=== PATIENT | male | born 1995 | race African-American/Black ===

== ENCOUNTER 2024-10-28 18:55 | Emergency (ER) | payer MEDICAID ==
[~2024-10-28] VITALS: Ht 182.9 cm; Wt 72.6 kg
[2024-10-28 19:07] VITALS: PULSE 98; RESP 18; O2SAT 100
--- NOTE | 2024-10-28 19:19 | ED.PDOC ---
History of Present Illness HPI Comments 29 y/o M, with a Hx of pancreatitis and EtOH abuse, presents with c/o non- radiating, left-sided abdominal pain, nausea, and vomiting for the past 2x days, today. Patient comments on pain being constant and pressure-like in quality. He admits to recent EtOH intake, last night, and having similar pain 3-4x months ago, when he had pancreatitis flare up and was seen and treated at [facility], today. Patient denies having any hematemesis, diarrhea, urinary symptoms, fever, chills, or other associated symptoms or modifiers at this time. Chief Complaint: Abdominal Pain Time Seen by MD: 19:00 Reviewed Notes: Nurses Notes, Medications, Allergies Allergies: Coded Allergies: NO KNOWN ALLERGIES (Unverified , 10/28/24) Mode of Arrival: Ambulatory Severity: Moderate Timing: Days (x2) Duration: Since onset Prehospital treatment: None Past Medical History Past Medical History (Other): pancreatitis Surgical History: Denies all surgeries Family History Family History: Unknown Social History Smoker: Non-Smoker Alcohol: Heavy Drugs: Denies Drug Use Lives In: Home Gastrointestinal: reports: abdominal pain (left-sided), nausea, vomiting All Other Systems: Reviewed and Negative (negative unless otherwise stated ab ove or in HPI) Physical Exam General Appearance: No Apparent Distress, Normal HEENT: Normal ENT Inspection, Pharynx Normal, TMs Normal Neck: Full Range of Motion, Non-Tender, Normal, Normal Inspection Respiratory: Chest Non-Tender, Lungs Clear, No Accessory Muscle Use, No Respiratory Distress, Normal Breath Sounds Cardiovascular: No Edema, No JVD, No Murmur, No Gallop, Normal Peripheral Pulses, Regular Rate/Rhythm Breast Exam: Deferred Gastrointestinal: LLQ (tenderness), LUQ (tenderness), No Organomegaly, No Pulsatile Mass, Normal Bowel Sounds, Soft, Tenderness Genitalia: Deferred Pelvic: Deferred Rectal: Deferred Extremities: No calf tenderness, Normal capillary refill, Normal inspection, Normal range of motion, Non-tender, No pedal edema Musculoskeletal : Apperance: Normal Neurologic: Alert, auto suspension and steering mechanic II-XII nml as Tested, No Motor Deficits, Normal Affect, Normal Mood, No Sensory Deficits Cerebellar Function: Normal Reflexes: Normal Skin: Dry, Normal Color, Warm Lymphatic: No Adenopathy Was a procedure done? Was a procedure done?: No Differential Dx Considerations may include: pancreatitis X-Ray, Labs, Meds, VS Vital Signs Date Time Temp Pulse Resp B/P (MAP) Pulse Ox O2 Delivery O2 Flow Rate FiO2 10/28/24 21:09 89 16 135/92 (106) 98 10/28/24 20:21 89 16 135/92 10/28/24 19:51 90 18 153/106 10/28/24 19:07 98 18 100 Room Air* 0 21 10/28/24 19:04 98.0 98 18 119/69 (86) 100 Lab Test 10/28/24 19:28 Range/Units White Blood Count 5.9 4.4-10.8 10^3/uL Red Blood Count 4.90 4.5-5.90 10^6/uL Hemoglobin 15.7 13.5-17.5 g/dL Hematocrit 45.6 41.0-53.0 % Mean Corpuscular Volume 92.9 80.0-100.0 fL Mean Corpuscular Hemoglobin 32.0 28.0-32.0 pg Mean Corpuscular Hemoglobin Concent 34.5 32.0-36.0 g/dL Red Cell Distribution Width 14.5 H 11.8-14.3 % Platelet Count 265 140-450 10^3/uL Mean Platelet Volume 7.1 6.9-10.8 fL Neutrophils (%) (Auto) 65.1 37.0-80.0 % Lymphocytes (%) (Auto) 28.3 10.0-50.0 % Monocytes (%) (Auto) 6.1 0.0-12.0 % Eosinophils (%) (Auto) 0.2 0.0-7.0 % Basophils (%) (Auto) 0.3 0.0-2.0 % Neutrophils # (Auto) 3.8 1.6-8.6 10 ^3/uL Lymphocytes # (Auto) 1.7 0.4-5.4 10 ^3/uL Monocytes # (Auto) 0.4 0-1.3 10 ^3/uL Eosinophils # (Auto) 0 0-0.8 10 ^3/uL Basophils # (Auto) 0 0-0.2 10 ^3/uL Nucleated Red Blood Cells 0.3 % Sodium Level 139 136-145 mmol/L Potassium Level 4.3 3.5-5.1 mmol/L Chloride Level 99 98-107 mmol/L Carbon Dioxide Level 29 20-31 mmol/L Anion Gap 11 5-15 Blood Urea Nitrogen 11 9-23 mg/dL Creatinine 1.47 H 0.700-1.30 mg/dL Glomerular Filtration Rate Calc 67 >90 mL/min BUN/Creatinine Ratio 7.5 L 10.0-20.0 Serum Glucose 114 H 74-106 mg/dL Calcium Level 8.5 L 8.7-10.4 mg/dL Total Bilirubin 1.0 0.2-1.0 mg/dL Aspartate Amino Transferase (AST) 146 H 13-40 U/L Alanine Aminotransferase (ALT) 94 H 7-40 U/L Alkaline Phosphatase 61 46-116 U/L Total Protein 8.3 H 5.7-8.2 g/dL Albumin 4.6 3.2-4.8 g/dL Lipase 72 H 12-53 U/L Current Medications Medications (Trade) Dose Ordered Sig/Krysta Route Start Time Stop Time Status Last Admin Morphine Sulfate 4 mg ONCE ONCE IM 10/28/24 19:15 10/28/24 19:16 DC 10/28/24 19:51 Ondansetron HCl (Zofran) 4 mg ONCE ONCE IM 10/28/24 19:15 10/28/24 19:16 DC 10/28/24 19:52 Sodium Chloride 1,000 ml @ 1,000 mls/hr Q1H ONCE IV 10/28/24 20:45 10/28/24 21:44 DC 10/28/24 20:57 [place] [id number] Ph: [phone] DIAGNOSTIC IMAGING Diagnostic Imaging Report : [id number] Signed PATIENT: LARY ROMO ACCT: [id number] UNIT: [id number] : 1995 LOC: ER ROOM / BED: / AGE / SEX: 29 / M ADM STATUS: REG ER SERVICE 13 ORDERING PHYSICIAN: TITO RIVERA PROCEDURE(s): ABPL - CT AB PEL WO CON-NO ORAL OR IV REASON: abd pain ORDER NUMBER(s): [id number], ACCESSION NUMBER(s): [id number] Exam: CT CT AB PEL WO CON-NO ORAL OR IV History: abd pain Comparison Study: None available at time of dictation. TECHNIQUE: Multidetector CT of the abdomen and pelvis without contrast. Axial, coronal and sagittal multiplanar reformats were obtained from the axial data set by the technologist. Radiation Dose Information: CT Dose: CTDI volume is 10.41 mGy. Dose-length product is 539.87 mGy*cm FINDINGS: The lung bases are clear. Partially visualized heart is unremarkable. Borderline hepatomegaly. Otherwise, liver, spleen, gallbladder, and adrenal glands unremarkable. Limited evaluation of the pancreas with peripancreatic fat stranding. Kidneys, ureters and urinary bladder are unremarkable. Prostate measures 3.9 x 4.9 by 4 cm. Stomach is unremarkable. Small bowel loops unremarkable. Appendix is not compl etely visualized with the visualized appendix unremarkable. No Pericecal or ermias appendiceal inflammatory reaction to suggest acute appendicitis. The large bowel is unremarkable with decompression of the distal transverse colon, descending colon and sigmoid. No evidence of intraperitoneal free air or free fluid. No evidence of aortic aneurysm. Shotty mesenteric lymph nodes. The soft tissues are unremarkable. No destructive osseous lesions are noted. IMPRESSION: Limited noncontrast imaging. Mild fat stranding adjacent to the pancreas. Recommend correlation with lipase for acute pancreatitis. Appendix is not completely visualized. Without complete visualization of the appendix, can not exclude acute appendicitis. ATED BY: CARLI ZAVALA DO DICTATED DATE/TIME: 10/28/241929 SIGNED BY: CARLI ZAVALA DO SIGNED DATE/TIME: 10/28/241929 CC: X-Ray, Labs, Meds, VS Comment Patient concerned about pain control when discharge. Concerned the pharmacies are closed. Also that tomorrow is [place]. Patient requesting admission. He was advised the patient that we would have to speak with hospitalist prior to admission. Nurse went to adjust IV and states that he was infiltrated. They needed to restarted IV and patient states he was prefer to leave AMA. Risks versus benefits were explained to patient which could include . Patient was signed out AMA. Time of 1ST Reevaluation: 19:30 Reevaluation 1ST: Unchanged Patient Education/Counseling: Diagnosis, Treatment Family Education/Counseling: No Family Present Departure 1 Departure Time of Disposition: 22:24 Impression: Primary Impression: Acute pancreatitis Qualified Codes: K85.20 - Alcohol induced acute pancreatitis without necrosis or infection Disposition: LEFT AGAINST MEDICAL ADVICE Condition: Stable Discharged With: Self Critical Care Note Critical Care Time?: No Stability Stability form required: No Heart Score Heart Score: Heart Score Response (Comments) Value History N/A 0 EKG N/A 0 Age N/A 0 Risk Factors N/A 0 Troponin N/A 0 Total 0 I personally scribed for TITO RIVERA ([email or web address]) on 10/28/24 at 19:19. Electronically submitted by Davidson Alvares ([email or web address]). I personally scribed for TITO RIVERAP ([email or web address]) on 10/28/24 at 19:54. Electronically submitted by Davidson Alvares ([email or web address]). TITO RIVERA Oct 28, 2024 19:19
--- NOTE | 2024-10-28 19:33 | DVH ---
Exam: CT CT AB PEL WO CON-NO ORAL OR IV History: abd pain Comparison Study: None available at time of dictation. TECHNIQUE: Multidetector CT of the abdomen and pelvis without contrast. Axial, coronal and sagittal m ultiplanar reformats were obtained from the axial data set by the technologist. Radiation Dose Information: CT Dose: CTDI volume is 10.41 mGy. Dose-length product is 539.87 mGy*cm FINDINGS: The lung bases are clear. Partially visualized heart is unremarkable. Borderline hepatomegaly. Otherwise, liver, spleen, gallbladder, and adrenal glands unremarkable. Ys ited evaluation of the pancreas with peripancreatic fat stranding. Kidneys, ureters and urinary bladder are unremarkable. Prostate measures 3.9 x 4.9 by 4 cm. Stomach is unremarkable. Small bowel loops unremarkable. Appendix is not completely visualized with the visualized appendix unremarkable. No Pericecal or ermias appendiceal inflammatory reaction to sugge st acute appendicitis. The large bowel is unremarkable with decompression of the distal transverse co stanley, descending colon and sigmoid. No evidence of intraperitoneal free air or free fluid. No evidence of aortic aneurysm. Shotty mesenteric lymph nodes. The soft tissues are unremarkable. No destructive osseous lesions are noted. IMPRESSION: Limited noncontrast imaging. Mild fat stranding adjacent to the pancreas. Recommend correlation with lipase for acute pancreatiti s. Appendix is not completely visualized. Without complete visualization of the appendix, can not exclu de acute appendicitis.
[2024-10-28] MEDS: MORPHINE SULFATE 4 MG/ML SYR/VIAL IM ONE (19:51)
[2024-10-28] MEDS: ONDANSETRON HCL 4 MG/2 ML VIAL IM ONE (19:52)
[2024-10-28 20:06] LABS: Basophils # (auto) 0 10 ^3/uL (0-0.2); Basophils % (auto) 0.3 % (0.0-2.0); Eosinophils # (auto) 0 10 ^3/uL (0-0.8); Eosinophils % (auto) 0.2 % (0.0-7.0); Hematocrit 45.6 % (41.0-53.0); Hemoglobin 15.7 g/dL (13.5-17.5); Lymphocytes # (auto) 1.7 10 ^3/uL (0.4-5.4); Lymphocytes % (auto) 28.3 % (10.0-50.0); Mean Corpuscular Hgb Conc. 34.5 g/dL (32.0-36.0); Mean Corpuscular Volume 92.9 fL (80.0-100.0); Monocytes # (auto) 0.4 10 ^3/uL (0-1.3); Monocytes % (auto) 6.1 % (0.0-12.0); Neutrophils # (auto) 3.8 10 ^3/uL (1.6-8.6); Neutrophils % (auto) 65.1 % (37.0-80.0); Nucleated Red Blood Cells % 0.3 %; Platelet Count (auto) 265 10^3/uL (140-450); Red Cell Distribution Width 14.5 % (11.8-14.3); White Blood Cell 5.9 10^3/uL (4.4-10.8)
[2024-10-28 20:15] LABS: Albumin 4.6 g/dL (3.2-4.8); Alkaline Phosphatase 61 U/L (46-116); Anion Gap 11 (5-15); BUN/Creatinine Ratio 7.5 (10.0-20.0); Blood Urea Nitrogen 11 mg/dL (9-23); Carbon Dioxide 29 mmol/L (20-31); Chloride 99 mmol/L (98-107); Potassium 4.3 mmol/L (3.5-5.1); Sodium 139 mmol/L (136-145)
[2024-10-28 20:17] LABS: Alanine Aminotransferase 94 U/L (7-40); Aspartate Aminotransferase 146 U/L (13-40); Calcium 8.5 mg/dL (8.7-10.4); Glucose 114 mg/dL (74-106); Lipase 72 U/L (12-53); Total Protein 8.3 g/dL (5.7-8.2)
[2024-10-28] MEDS: SODIUM CHLORIDE 0.9% 1,000 ML IV ONE (20:57)
[2024-10-28 21:09] VITALS: BP 135/92; PULSE 89; RESP 16; O2SAT 98
== END 2024-10-28 22:13 | disposition left against medical advice (07) ==
LOC: ER 18:55
DX: K85.90 Acute pancreatitis without necrosis or infection, unspecified (principal)
CPT/HCPCS: 36415; 74176; 80053; 83690; 85025; 96360; 96372; 99285; J2270; J2405; J7030